=== PATIENT | female | born 1945 | race Caucasian/White ===

== ENCOUNTER 2020-04-28 19:52 | Inpatient (IN) | payer MEDICARE ==
[2020-04-28] MEDS ORDERED: Acetaminophen 500 MG TAB ONE (20:36)
[2020-04-28] MEDS ORDERED: Enoxaparin Sodium 60 MG/0.6 ML SYRINGE ONE (20:36)
--- NOTE | 2020-04-28 20:40 | PDOC.FPRHP ---
- History of Present Illness Chief Complaint: COVID PNA, dehydration - History PMHx: PSHx: FHx: Social: - Review of Systems Respiratory: reports: shortness of breath Gastrointestinal: reports: nausea, vomiting, diarrhea - Vital signs BP: [] HR: [] RR: [] Tmax: [] Pox: []% on [] Wt: [] FMR H&P: Upper Level - Plan Date/Time: 04/28/202038 I, [], have evaluated this patient and agree with findings/plan as outlined by supply chain intern resident. Pertinent changes/additions are listed here.
[2020-04-28 23:00] LABS: Troponin I Less than 0.010 ng/mL (< 0.028)
[2020-04-28] MEDS ORDERED: Ondansetron PF 4 MG/2 ML Vial IVP PRN (23:24)
[2020-04-28] MEDS ORDERED: Ondansetron ODT 4 MG TAB PO PRN (23:24)
--- NOTE | 2020-04-28 23:36 | PDOC.HHP ---
Hospitalist HPI - History of Present Illness Shortness of breath, fatigue History of Present Illness: This is a 74-year-old female patient with a history of hypertension who presents with worsening shortness of breath and fatigue after she tested positive for Covid on 04/11/2020. 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 She stayed at home however has been having worsening shortness of breath, cough and fatigue with diarrhea. She presented at [facility] where she was found to be hypoxic with elevated D-dimer, renal insufficiency leukocytosis. CTA was unable to be performed due to reduced renal function. She was transferred here for higher level care. Patient notes having diarrhea but improved. At the time of my evaluation she only complains of fatigue and and back pain from discomfort from her bed. She denies any chest pain but however has only shortness of breath She was started on Lovenox 1 mg/kg and Tylenol for pain. Hospitalist ROS - Review of Systems Constitutional: reports: weakness. denies: fever, sweats Cardiovascular: denies: chest pain, palpitations, orthopnea, paroxysmal noc. dyspnea, edema Gastrointestinal: reports: nausea, diarrhea. denies: vomiting, abdominal pain, constipation Genitourinary: denies: dysuria, frequency, incontinence Neurological: denies: weakness, numbness, incoordination Hospitalist History - Past Medical History Cardiac: reports: HTN - Past Surgical History Past Surgical History: reports: Appendectomy - Family History Family History: reports: cardiac disorder - Social History Smoking Status: Never smoker Alcohol: reports: Rare Living Situation: Friends Activity level: independent ambulation - Exam General Appearance: awake alert Neck: supple, no JVD, no thyromegaly, no lymphadenopathy Heart: RRR, no murmur, no gallops Respiratory - other findings: Reduced air entry bilaterally. Occasional wheezing. Gastrointestinal: soft, non-tender, non-distended, normal bowel sounds Extremities: no cyanosis, no clubbing, no edema Neurological: cranial nerve grossly intact, no focal deficits Psychiatric: normal affect, normal behavior, A&O x 3 Hospitalist Results - Labs Result Diagrams: 04/29/20 04:09 04/29/20 04:09 Lab results: Troponin I Less than 0.010 ng/mL (< 0.028) 04/28/20 22:25 Hospitalist H&P A/P - Plan Plan: This is a 74-year-old female patient,who presents with worsening shortness of breath fatigue and diarrhea after being tested positive for Covid a little over 2 weeks ago. Acute hypoxic respiratory failure Likely due to Covid pneumonia Oxygen therapy Respiratory consult if deteriorates. Pneumonia due to Covid Start vitamins C,D and zinc Decadron 10 mg daily Start convalescent plasma She is she is out of the window for remdesivir ID consult in a.m. Diarrhea This is resolving This may be due to Covid If persistentC. difficile check in a.m. Chronic back pain As needed Tylenol -Hypertension Resume home medications once verified CODE STATUSfull code
[2020-04-28] MEDS ORDERED: Sodium Chloride 0.9% 1,000 ML IV SCH (23:45)
[2020-04-28 23:49] VITALS: BMI 23.1
[2020-04-29] MEDS: Dexamethasone 10 MG/ML VIAL SLOW IVP SCH ×2 (01:00→08:39)
[2020-04-29 01:54] LABS: Troponin I 0.016 ng/mL (< 0.028)
[2020-04-29 04:28] LABS: #Basophils 0.2 thou/uL (0.0-0.2); #Lymphocytes 0.4 thou/uL (1.20-3.40); #Monocytes 0.1 thou/uL (0.11-0.59); #Neutrophils 13.1 thou/uL (1.40-6.50); %Basophils 1.6 % (0.0-1.0); %Eosinophils 0.1 % (0.0-10.0); %Lymphocytes 2.6 % (21.0-51.0); %Monocytes 0.9 % (0.0-10.0); %Neutrophils 94.8 % (42.0-75.0); Hemoglobin 11.4 g/dL (12.0-16.0); Mean Corpuscular HGB CONC 33.4 g/dL (32.0-36.0); Mean Corpuscular Hemoglobin 33.8 pg (27.0-31.0); Mean Platelet Volume 6.5 fL (7.4-10.4); Platelet Count 355 thou/uL (130-400); RBC Distribution Width 12.1 % (11.5-14.5); Red Blood Cell (RBC) Count 3.36 mill/uL (4.20-5.40); White Blood Cell (WBC) Count 13.8 thou/uL (4.8-10.8)
[2020-04-29 04:52] LABS: ALT (SGPT) 19 U/L (8-55); AST (SGOT) 27 U/L (5-34); Alkaline Phosphatase 66 U/L (40-110); Anion Gap 15 mmol/L (10-20); BUN (Urea Nitrogen) 48 mg/dL (9.8-20.1); Bilirubin, Total 0.2 mg/dL (0.2-1.2); Calc. Creatinine Clearance 57 mL/min (70-130); Calcium 8.1 mg/dL (7.8-10.44); Carbon Dioxide 16 mmol/L (23-31); Chloride 111 mmol/L (98-107); Globulin 3.6 g/dL (2.4-3.5); Glucose 159 mg/dL (83-110); Potassium 4.3 mmol/L (3.5-5.1); Protein, Total 6.6 g/dL (6.0-8.3); Sodium 138 mmol/L (136-145)
[2020-04-29 04:53] LABS: Troponin I 0.021 ng/mL (< 0.028)
[2020-04-29] MEDS: Acetaminophen 325 MG TAB PO PRN ×5 (04:58→20:53)
--- NOTE | 2020-04-29 05:29 | PDOC.FMACP ---
Advance Care Planning - Note Summary: Advanced Care Planning was discussed. The diagnosis, prognosis and goals of care were discussed. [place] decision maker is Abdirahman Escalante, a friend. code status is full code
[2020-04-29] MEDS: Cholecalciferol (Vitamin D3) 400 UNITS TAB PO SCH (08:39)
[2020-04-29] MEDS: Ascorbic Acid 500 mg Chewable Tablet PO SCH (08:39)
[2020-04-29] MEDS: Enoxaparin Sodium 60 MG/0.6 ML SYRINGE SC SCH ×2 (08:40→20:49)
--- NOTE | 2020-04-29 12:56 | PDOC.HOSPP ---
- Subjective Subjective: Patient was seen examined at bedside. Patient stated her breathing is better. She is currently satting in mid 90s on 3 L.She is status post convalescent plasma. No fever - Objective Vital Signs & Weight: Vital Signs (12 hours) Temp Pulse Pulse Resp BP BP Pulse Ox 04/29/20 08:00 98.0 F 71 18 138/63 95 04/29/20 04:49 97.4 F L 70 20 117/65 93 L 04/29/20 03:13 97.2 F L 71 20 113/62 94 L Weight Weight 138 lb 12.8 oz I&O: 04/28/20 04/29/20 04/30/20 06:59 06:59 06:59 Intake Total 240 Balance 240 Result Diagrams: 04/29/20 04:09 04/29/20 04:09 Radiology Reviewed by me: Yes EKG Reviewed by me: Yes Hospitalist ROS - Medication Medications: Active Medications Generic Name Dose Route Start Last Admin Trade Name Freq PRN Reason Stop Dose Admin Acetaminophen 650 mg 04/28/20 23:24 04/29/20 08:51 Acetaminophen 325 Mg Tab PO 650 mg Q4H PRN Administration Headache/Fever/Mild Pain (1-3) Ascorbic Acid 1,000 mg 04/29/20 09:00 04/29/20 08:39 Ascorbic Acid 500 Mg Chewable Tablet PO 1,000 mg DAILY MINOO Administration Cholecalciferol 400 units 04/29/20 09:00 04/29/20 08:39 Cholecalciferol (Vitamin D3) 400 Units Tab PO 400 units DAILY MINOO Administration Dexamethasone 10 mg 04/28/20 23:45 04/29/20 08:39 Dexamethasone 10 Mg/Ml Vial SLOW IVP 10 mg DAILY MINOO Administration Enoxaparin Sodium 60 mg 04/29/20 09:00 04/29/20 08:40 Enoxaparin Sodium 60 Mg/0.6 Ml Syringe SC 60 mg 0900,2100 MINOO Administration - Exam General Appearance: NAD Eye: PERRL ENT: normocephalic atraumatic Neck: supple Heart: RRR Respiratory: CTAB Gastrointestinal: soft, non-tender Extremities: no cyanosis Skin: normal turgor Neurological: cranial nerve grossly intact Psychiatric: normal affect, normal behavior, A&O x 3 Hosp A/P - Plan The patient is a very pleasant 74 years old female who has significant past medical history of hypertension, dyslipidemia, who presented to ED with worsening dyspnea, and diarrhea. She was tested positive for Covid 2 weeks ago. Acute hypoxic respiratory failure likely secondary to COVID-19 pneumonia --We will continue with Decadron, supportive cares. Ancillary treatments with vitamin C/D/zinc --Status post convalescent plasma. Patient is not a candidate for remdesivir given duration of symptoms. COVID-19 pneumonia --Management as above Diarrhea --Likely due to above, resolved. Supportive care Essential hypertension --Blood pressure stable, resume home medication Dyslipidemia --Resume statin therapy DVT ppx: Lovenox twice daily GI ppx: Protonix Code Status: Full code Anticipated Dispo: Home when medically stable
--- NOTE | 2020-04-29 15:24 | CON ---
DATE OF CONSULTATION: 04/29/2020 REASON FOR CONSULTATION: COVID pneumonia. HISTORY OF PRESENT ILLNESS: A 74-year-old patient with history of hyperlipidemia, hypertension, who has been ill for the past 10 days, but had a positive test for the past 18 days. Three days before admission, she developed nausea, diarrhea and volume depletion. Some cough but no dyspnea. No headaches. No chest pain. No back pain. No abdominal pain. No genitourinary symptoms. No joint symptoms. MEDICAL HISTORY: Hyperlipidemia, hypertension. PAST SURGICAL HISTORY: Appendectomy, foot surgery. SOCIAL HISTORY: Never a smoker. She works as a nurse. ALLERGIES: NONE. CURRENT MEDICATIONS: 1. Lipitor. 2. Decadron. 3. Lovenox. 4. Prinzide. 5. Zofran. 6. Zinc. PHYSICAL EXAMINATION: VITAL SIGNS: She is afebrile. She is on nasal cannula 3 to 4 L, saturating anywhere from 93% to 95% depending on activity, 138/63 blood pressure. GENERAL: Appears in no distress, feeling a little better. SKIN: Unremarkable. No lymphadenopathy. HEENT: Ocular movements conjugate. Oral cavity normal. LUNGS: With inspiratory crackles at the bases mostly on the right side. No wheezing. HEART: S1 and S2. Regular rate. No S3 or S4. ABDOMEN: Soft, not distended or tender. No ascites. No bladder distention. EXTREMITIES: No joint inflammatory activity, moves extremities equally. NEUROLOGIC: Cognitive function appears to be intact. LABORATORY DATA: White cell count 13.8, hemoglobin 11.4, platelets 355, 94% neutrophils. Creatinine 0.88. Liver profile normal. Albumin 3.0. COVID-19 PCR detected on April 19. Chest x-ray, diffuse infiltrates. ASSESSMENT: Hypertension, hyperlipidemia with moderate COVID pneumonia, admitted mostly because of gastrointestinal symptoms and volume depletion. The patient has moderate disease and is at anywhere from 12 to 15 day of illness duration thus far, maybe even longer. Continue Decadron. I do not think she would benefit from remdesivir. I believe she was given plasma on admission, but plasma has been demonstrated not to be effective in a randomized control trial. She has a low risk for progression of her respiratory symptoms since she is at the end of the second week of illness and should be able to be discharged soon once her gastrointestinal issues improve. Job ID: [id number]
[2020-04-29] MEDS: Atorvastatin Calcium 20 MG TAB PO SCH (20:49)
[2020-04-30] MEDS: Acetaminophen 325 MG TAB PO PRN ×3 (04:55→18:50)
[2020-04-30 05:14] LABS: Anion Gap 14 mmol/L (10-20); BUN (Urea Nitrogen) 37 mg/dL (9.8-20.1); CRP (Inflammatory) 12.66 mg/dL (= or < 0.5); Calc. Creatinine Clearance 61 mL/min (70-130); Calcium 8.1 mg/dL (7.8-10.44); Carbon Dioxide 19 mmol/L (23-31); Chloride 114 mmol/L (98-107); Glucose 146 mg/dL (83-110); Potassium 4.3 mmol/L (3.5-5.1); Sodium 143 mmol/L (136-145)
[2020-04-30 05:58] LABS: Band 17 % (5-11); Hemoglobin 11.4 g/dL (12.0-16.0); Lymphocytes 7 % (21-51); MDiff Complete? YES; Mean Corpuscular HGB CONC 33.4 g/dL (32.0-36.0); Mean Corpuscular Hemoglobin 33.6 pg (27.0-31.0); Mean Platelet Volume 6.7 fL (7.4-10.4); Monocytes 3 % (0-10); Neutrophil 73 % (42-75); Platelet Count 405 thou/uL (130-400); RBC Distribution Width 12.2 % (11.5-14.5); Red Blood Cell (RBC) Count 3.39 mill/uL (4.20-5.40); White Blood Cell (WBC) Count 20.7 thou/uL (4.8-10.8)
[2020-04-30] MEDS: Cholecalciferol (Vitamin D3) 400 UNITS TAB PO SCH (09:23)
[2020-04-30] MEDS: Lisinopril/Hydrochlorothiazide 20/25 mg Tablet PO SCH (09:23)
[2020-04-30] MEDS: Dexamethasone 4 mg/ml Vial SLOW IVP SCH (09:24)
[2020-04-30] MEDS: Ascorbic Acid 500 mg Chewable Tablet PO SCH (09:24)
[2020-04-30] MEDS: Zinc Sulfate 220 MG CAP PO SCH (09:24)
[2020-04-30] MEDS: Enoxaparin Sodium 60 MG/0.6 ML SYRINGE SC SCH ×2 (09:25→20:33)
--- NOTE | 2020-04-30 14:34 | PDOC.HOSPP ---
- Subjective Encounter Date: 04/30/20 Encounter Time: 08:00 Subjective: Patient seen for follow-up regarding acute hypoxic respiratory failure. She reports feeling better. - Objective Vital Signs & Weight: Vital Signs (12 hours) Temp Pulse Resp BP Pulse Ox 04/30/20 11:27 98.7 F 74 24 H 141/71 H 92 L 04/30/20 09:30 98.3 F 84 24 H 146/63 H 92 L 04/30/20 07:48 94 L 04/30/20 04:57 97.7 F 74 17 150/81 H 94 L Weight Weight 138 lb 12.8 oz I&O: 04/29/20 04/30/20 05/01/20 06:59 06:59 06:59 Intake Total 240 Output Total 100 Balance 240 -100 Result Diagrams: 04/30/20 04:36 04/30/20 04:36 Additional Labs: Labs and MAR reviewed by de Hospitalist ROS - Review of Systems Respiratory: reports: cough, SOB with excertion Cardiovascular: denies: chest pain, palpitations, orthopnea, paroxysmal noc. dyspnea, edema, light headedness Gastrointestinal: denies: nausea, vomiting, abdominal pain, diarrhea, constipation, melena, hematochezia - Medication Medications: Active Medications Generic Name Dose Route Start Last Admin Trade Name Freq PRN Reason Stop Dose Admin Acetaminophen 650 mg 04/28/20 23:24 04/30/20 12:00 Acetaminophen 325 Mg Tab PO 650 mg Q4H PRN Administration Headache/Fever/Mild Pain (1-3) Ascorbic Acid 1,000 mg 04/29/20 09:00 04/30/20 09:24 Ascorbic Acid 500 Mg Chewable Tablet PO 1,000 mg DAILY MINOO Administration Atorvastatin Calcium 20 mg 04/29/20 21:00 04/29/20 20:49 Atorvastatin Calcium 20 Mg Tab PO 20 mg HS MINOO Administration Cholecalciferol 400 units 04/29/20 09:00 04/30/20 09:23 Cholecalciferol (Vitamin D3) 400 Units Tab PO 400 units DAILY MINOO Administration Dexamethasone 10 mg 04/30/20 09:00 04/30/20 09:24 Dexamethasone 4 Mg/Ml Vial SLOW IVP 10 mg DAILY MINOO Administration Enoxaparin Sodium 60 mg 04/29/20 09:00 04/30/20 09:25 Enoxaparin Sodium 60 Mg/0.6 Ml Syringe SC 60 mg 0900,2100 MINOO Administration Lisinopril/HCTZ 1 tab 04/30/20 09:00 04/30/20 09:23 Lisinopril/Hydrochlorothiazide 20/25 Mg Tablet PO 1 tab DAILY MINOO Administration Metoprolol Succinate 50 mg 04/30/20 09:00 04/30/20 09:24 Metoprolol Succinate Xl 50 Mg Tab PO 50 mg DAILY MINOO Administration Ondansetron HCl 4 mg 04/28/20 23:24 04/29/20 16:46 Ondansetron Pf 4 Mg/2 Ml Vial IVP 4 mg Q6H PRN Administration Nausea/Vomiting Pantoprazole Sodium 40 mg 04/30/20 09:00 04/30/20 09:23 Pantoprazole 40 Mg Tab PO 40 mg DAILY MINOO Administration Zinc Sulfate 220 mg 04/30/20 09:00 04/30/20 09:24 Zinc Sulfate 220 Mg Cap PO 220 mg DAILY MINOO Administration - Exam General Appearance: awake alert Eye: anicteric sclera ENT: moist mucosa Neck: supple Heart: RRR Respiratory: CTAB Gastrointestinal: soft, non-tender Skin: no rashes Psychiatric: normal affect, normal behavior Hosp A/P - Plan Assessment/plan: Acute hypoxic respiratory failure likely secondary to COVID-19 pneumonia --continue dexamethasone and vitamin C/D/zinc --Status post convalescent plasma. Patient is not a candidate for remdesivir given duration of symptoms. --Patient continues to be hypoxic, will need home oxygen at the time of discharge. COVID-19 pneumonia --Clinically improving, but continues to require supplemental oxygen Diarrhea --Resolved Essential hypertension --Controlled and stable Dyslipidemia --Continue Lipitor
[2020-04-30] MEDS: Atorvastatin Calcium 20 MG TAB PO SCH (20:33)
[2020-05-01] MEDS: Acetaminophen 325 MG TAB PO PRN ×4 (02:38→19:56)
[2020-05-01 06:05] LABS: Hemoglobin 11.4 g/dL (12.0-16.0); MDiff Complete? YES; Mean Corpuscular HGB CONC 33.8 g/dL (32.0-36.0); Mean Corpuscular Hemoglobin 33.4 pg (27.0-31.0); Mean Corpuscular Volume 98.7 fL (78.0-98.0); Mean Platelet Volume 6.6 fL (7.4-10.4); Platelet Count 456 thou/uL (130-400); RBC Distribution Width 12.1 % (11.5-14.5); Red Blood Cell (RBC) Count 3.42 mill/uL (4.20-5.40); White Blood Cell (WBC) Count 19.5 thou/uL (4.8-10.8)
[2020-05-01 06:06] LABS: Band 15 % (5-11); Lymphocytes 9 % (21-51); Monocytes 2 % (0-10); Neutrophil 73 % (42-75); Reactive Lymphocytes 1 % (0-10)
[2020-05-01] MEDS: Vancomycin HCl 25 MG/ML Oral PO SCH ×3 (09:34→19:57)
[2020-05-01] MEDS: Saccharomyces boulardii 250 MG CAP PO SCH (09:34)
[2020-05-01] MEDS: Lisinopril/Hydrochlorothiazide 20/25 mg Tablet PO SCH (09:34)
[2020-05-01] MEDS: Ascorbic Acid 500 mg Chewable Tablet PO SCH (09:34)
[2020-05-01] MEDS: Cholecalciferol (Vitamin D3) 400 UNITS TAB PO SCH (09:35)
[2020-05-01] MEDS: Zinc Sulfate 220 MG CAP PO SCH (09:35)
[2020-05-01] MEDS: Enoxaparin Sodium 60 MG/0.6 ML SYRINGE SC SCH ×2 (09:35→19:56)
[2020-05-01] MEDS: Dexamethasone 4 mg/ml Vial SLOW IVP SCH (09:35)
--- NOTE | 2020-05-01 17:39 | PDOC.HOSPP ---
- Subjective Encounter Date: 05/01/20 Encounter Time: 07:30 Subjective: Patient seen for follow-up regarding cluster #infection. She denies diarrhea at this time. She denies chest pain or shortness of breath. - Objective Vital Signs & Weight: Vital Signs (12 hours) Temp Pulse Resp BP Pulse Ox 05/01/20 15:14 98.6 F 72 24 H 153/65 H 94 L 05/01/20 13:10 98.4 F 97 17 144/68 H 93 L 05/01/20 09:35 98 F 82 24 H 151/74 H 93 L Weight Weight 138 lb 12.8 oz I&O: 04/30/20 05/01/20 05/02/20 06:59 06:59 06:59 Output Total 100 Balance -100 Result Diagrams: 05/01/20 04:34 04/30/20 04:36 Additional Labs: I reviewed patient's labs and MAR EKG Reviewed by me: Yes (Normal sinus rhythm on telemetry) Hospitalist ROS - Review of Systems Respiratory: reports: SOB with excertion Cardiovascular: denies: chest pain, palpitations, orthopnea, paroxysmal noc. dyspnea, edema, light headedness Gastrointestinal: denies: nausea, vomiting, abdominal pain, diarrhea, constipation, melena, hematochezia - Medication Medications: Active Medications Generic Name Dose Route Start Last Admin Trade Name Francheska PRN Reason Stop Dose Admin Acetaminophen 650 mg 04/28/20 23:24 05/01/20 15:54 Acetaminophen 325 Mg Tab PO 650 mg Q4H PRN Administration Headache/Fever/Mild Pain (1-3) Ascorbic Acid 1,000 mg 04/29/20 09:00 05/01/20 09:34 Ascorbic Acid 500 Mg Chewable Tablet PO 1,000 mg DAILY MINOO Administration Atorvastatin Calcium 20 mg 04/29/20 21:00 04/30/20 20:33 Atorvastatin Calcium 20 Mg Tab PO 20 mg HS MINOO Administration Cholecalciferol 400 units 04/29/20 09:00 05/01/20 09:35 Cholecalciferol (Vitamin D3) 400 Units Tab PO 400 units DAILY MINOO Administration Dexamethasone 10 mg 04/30/20 09:00 05/01/20 09:35 Dexamethasone 4 Mg/Ml Vial SLOW IVP 10 mg DAILY MINOO Administration Enoxaparin Sodium 60 mg 04/29/20 09:00 05/01/20 09:35 Enoxaparin Sodium 60 Mg/0.6 Ml Syringe SC 60 mg 0900,2100 MINOO Administration Lisinopril/HCTZ 1 tab 04/30/20 09:00 05/01/20 09:34 Lisinopril/Hydrochlorothiazide 20/25 Mg Tablet PO 1 tab DAILY MINOO Administration Metoprolol Succinate 50 mg 04/30/20 09:00 05/01/20 09:35 Metoprolol Succinate Xl 50 Mg Tab PO 50 mg DAILY MINOO Administration Ondansetron HCl 4 mg 04/28/20 23:24 04/29/20 16:46 Ondansetron Pf 4 Mg/2 Ml Vial IVP 4 mg Q6H PRN Administration Nausea/Vomiting Saccharomyces Boulardii 250 mg 05/01/20 09:00 05/01/20 09:34 Saccharomyces Boulardii 250 Mg Cap PO 250 mg DAILY MINOO Administration Sodium Chloride 10 ml 05/01/20 09:00 05/01/20 09:35 Flush - Normal Saline 10 Ml Syringe IVF 10 ml Q12HR MINOO Administration Vancomycin HCl 125 mg 05/01/20 08:00 05/01/20 15:08 Vancomycin Hcl 25 Mg/Ml Oral PO 125 mg Q6H MINOO Administration Zinc Sulfate 220 mg 04/30/20 09:00 05/01/20 09:35 Zinc Sulfate 220 Mg Cap PO 220 mg DAILY MINOO Administration - Exam General Appearance: awake alert Eye: anicteric sclera ENT: normocephalic atraumatic Neck: supple Heart: RRR Respiratory: CTAB Gastrointestinal: soft, non-tender Skin: no rashes Musculoskeletal: no muscle wasting Psychiatric: normal affect, normal behavior Hosp A/P - Plan Assessment/plan: C. difficile infection -Start vancomycin orally and Florastor. Acute hypoxic respiratory failure likely secondary to COVID-19 pneumonia --Patient is on dexamethasone and vitamin C/D/zinc --Status post convalescent plasma. --Patient is not a candidate for remdesivir given duration of symptoms. --Patient continues to be hypoxic. COVID-19 pneumonia --Clinically improving, but continues to require supplemental oxygen Diarrhea --Resolved Essential hypertension --Controlled and stable Dyslipidemia --Patient is on Lipitor
[2020-05-01] MEDS: Diclofenac Sodium 50 MG DR TAB PO PRN (18:43)
[2020-05-01] MEDS: Atorvastatin Calcium 20 MG TAB PO SCH (19:56)
[2020-05-02 05:32] LABS: #Monocytes 1.1 thou/uL (0.11-0.59); #Neutrophils 14.3 thou/uL (1.40-6.50); %Basophils 0.1 % (0.0-1.0); %Eosinophils 0.1 % (0.0-10.0); %Lymphocytes 6.2 % (21.0-51.0); %Monocytes 6.6 % (0.0-10.0); Hemoglobin 11.8 g/dL (12.0-16.0); Mean Corpuscular HGB CONC 33.2 g/dL (32.0-36.0); Mean Corpuscular Volume 99.3 fL (78.0-98.0); Mean Platelet Volume 6.8 fL (7.4-10.4); Platelet Count 485 thou/uL (130-400); RBC Distribution Width 11.9 % (11.5-14.5); Red Blood Cell (RBC) Count 3.59 mill/uL (4.20-5.40); White Blood Cell (WBC) Count 16.5 thou/uL (4.8-10.8)
[2020-05-02] MEDS: Vancomycin HCl 25 MG/ML Oral PO SCH ×3 (06:59→18:41)
[2020-05-02] MEDS: Ascorbic Acid 500 mg Chewable Tablet PO SCH (10:28)
[2020-05-02] MEDS: Lisinopril/Hydrochlorothiazide 20/25 mg Tablet PO SCH (10:28)
[2020-05-02] MEDS: Diclofenac Sodium 50 MG DR TAB PO PRN ×2 (10:28→20:50)
[2020-05-02] MEDS: Zinc Sulfate 220 MG CAP PO SCH (10:28)
[2020-05-02] MEDS: Cholecalciferol (Vitamin D3) 400 UNITS TAB PO SCH (10:29)
[2020-05-02] MEDS: Enoxaparin Sodium 60 MG/0.6 ML SYRINGE SC SCH ×2 (10:29→20:51)
[2020-05-02] MEDS: Dexamethasone 4 mg/ml Vial SLOW IVP SCH (10:29)
[2020-05-02] MEDS: Saccharomyces boulardii 250 MG CAP PO SCH (10:31)
[2020-05-02] MEDS: Acetaminophen 325 MG TAB PO PRN ×2 (13:07→20:52)
--- NOTE | 2020-05-02 15:43 | PDOC.HOSPP ---
- Subjective Encounter Date: 05/02/20 Encounter Time: 07:30 Subjective: Patient seen for follow-up regarding hypoxic respiratory failure. She denies chest pain. - Objective Vital Signs & Weight: Vital Signs (12 hours) Temp Pulse Resp BP Pulse Ox 05/02/20 13:05 98.3 F 75 24 H 153/69 H 92 L 05/02/20 10:30 98.0 F 05/02/20 04:00 98.7 F 65 24 H 143/70 H 93 L Weight Weight 138 lb 12.8 oz I&O: 05/01/20 05/02/20 05/03/20 06:59 06:59 06:59 Intake Total 720 Balance 720 Result Diagrams: 05/02/20 05:09 05/02/20 05:09 Additional Labs: Labs and MAR reviewed by me EKG Reviewed by me: Yes (Telemetry shows normal sinus rhythm) Hospitalist ROS - Review of Systems Cardiovascular: denies: chest pain, palpitations, orthopnea, paroxysmal noc. dyspnea, edema, light headedness Gastrointestinal: denies: nausea, vomiting, abdominal pain, diarrhea, constipat ion, melena, hematochezia - Medication Medications: Active Medications Generic Name Dose Route Start Last Admin Trade Name Freq PRN Reason Stop Dose Admin Acetaminophen 650 mg 04/28/20 23:24 05/02/20 13:07 Acetaminophen 325 Mg Tab PO 650 mg Q4H PRN Administration Headache/Fever/Mild Pain (1-3) Ascorbic Acid 1,000 mg 04/29/20 09:00 05/02/20 10:28 Ascorbic Acid 500 Mg Chewable Tablet PO 1,000 mg DAILY MINOO Administration Atorvastatin Calcium 20 mg 04/29/20 21:00 05/01/20 19:56 Atorvastatin Calcium 20 Mg Tab PO 20 mg HS MINOO Administration Cholecalciferol 400 units 04/29/20 09:00 05/02/20 10:29 Cholecalciferol (Vitamin D3) 400 Units Tab PO 400 units DAILY MINOO Administration Dexamethasone 10 mg 04/30/20 09:00 05/02/20 10:29 Dexamethasone 4 Mg/Ml Vial SLOW IVP 10 mg DAILY MINOO Administration Diclofenac Sodium 50 mg 05/01/20 18:07 05/02/20 10:28 D[address]lofenac Sodium [address] Tab PO 50 mg BIDPRN PRN Administration Pain Enoxaparin Sodium 60 mg 04/29/20 09:00 05/02/20 10:29 Enoxaparin Sodium 60 Mg/0.6 Ml Syringe SC 60 mg 0900,2100 MINOO Administration Lisinopril/HCTZ 1 tab 04/30/20 09:00 05/02/20 10:28 Lisinopril/Hydrochlorothiazide 20/25 Mg Tablet PO 1 tab DAILY MINOO Administration Metoprolol Succinate 50 mg 04/30/20 09:00 05/02/20 10:28 Metoprolol Succinate Xl 50 Mg Tab PO 50 mg DAILY MINOO Administration Ondansetron HCl 4 mg 04/28/20 23:24 04/29/20 16:46 Ondansetron Pf 4 Mg/2 Ml Vial IVP 4 mg Q6H PRN Administration Nausea/Vomiting Saccharomyces Boulardii 250 mg 05/01/20 09:00 05/02/20 10:31 Saccharomyces Boulardii 250 Mg Cap PO 250 mg DAILY MINOO Administration Sodium Chloride 10 ml 05/01/20 09:00 05/02/20 10:31 Flush - Normal Saline 10 Ml Syringe IVF 10 ml Q12HR MINOO Administration Vancomycin HCl 125 mg 05/02/20 13:00 05/02/20 13:00 Vancomycin Hcl 25 Mg/Ml Oral PO 125 mg 0100,0700,1300,1900 MINOO Administration Zinc Sulfate 220 mg 04/30/20 09:00 05/02/20 10:28 Zinc Sulfate 220 Mg Cap PO 220 mg DAILY MINOO Administration - Exam General Appearance: awake alert Eye: anicteric sclera Neck: supple Heart: RRR Respiratory: rhonchi Gastrointestinal: soft Skin: no rashes Psychiatric: normal affect Hosp A/P - Plan Assessment/plan: Acute hypoxic respiratory failure likely secondary to COVID-19 pneumonia --Continue dexamethasone and vitamin C/D/zinc --Status post convalescent plasma. --Patient was not a candidate for remdesivir given duration of symptoms. --Patient continues to be hypoxic, requiring supplemental oxygen. C. difficile infection -vancomycin orally and Florastor. COVID-19 pneumonia --Clinically improving, but continues to require supplemental oxygen Diarrhea --Resolved Essential hypertension --Stable Dyslipidemia --Continue Lipitor
[2020-05-02] MEDS: Atorvastatin Calcium 20 MG TAB PO SCH (20:52)
[2020-05-03] MEDS: Vancomycin HCl 25 MG/ML Oral PO SCH ×4 (02:40→18:49)
[2020-05-03] MEDS: Acetaminophen 325 MG TAB PO PRN ×3 (04:50→21:34)
[2020-05-03] MEDS: Enoxaparin Sodium 60 MG/0.6 ML SYRINGE SC SCH ×2 (08:10→21:35)
[2020-05-03] MEDS: Ascorbic Acid 500 mg Chewable Tablet PO SCH (08:11)
[2020-05-03] MEDS: Saccharomyces boulardii 250 MG CAP PO SCH (08:11)
[2020-05-03] MEDS: Diclofenac Sodium 50 MG DR TAB PO PRN ×2 (08:11→21:36)
[2020-05-03] MEDS: Zinc Sulfate 220 MG CAP PO SCH (08:11)
[2020-05-03] MEDS: Cholecalciferol (Vitamin D3) 400 UNITS TAB PO SCH (08:12)
[2020-05-03] MEDS: Dexamethasone 4 mg/ml Vial SLOW IVP SCH (08:12)
[2020-05-03] MEDS: Lisinopril/Hydrochlorothiazide 20/25 mg Tablet PO SCH (08:12)
--- NOTE | 2020-05-03 19:26 | PDOC.HOSPP ---
- Subjective Encounter Date: 05/03/20 Encounter Time: 19:24 Subjective: Patient seen for follow-up regarding COVID-19 infection. She is on 6 L/min of oxygen. - Objective Vital Signs & Weight: Vital Signs (12 hours) Temp Pulse Resp BP BP BP Pulse Ox 05/03/20 16:00 98.3 F 59 L 20 153/74 H 94 L 05/03/20 15:12 136/76 140/84 05/03/20 12:00 98.1 F 60 16 139/65 94 L 05/03/20 08:00 97.3 F L 60 24 H 166/73 H 95 Pulse Ox Pulse Ox 05/03/20 16:00 05/03/20 15:12 97 95 05/03/20 12:00 05/03/20 08:00 Weight Weight 138 lb 12.8 oz I&O: 05/02/20 05/03/20 05/04/20 06:59 06:59 06:59 Intake Total 720 Balance 720 Result Diagrams: 05/02/20 05:09 05/02/20 05:09 Additional Labs: I reviewed patient's labs and [facility] Hospitalist ROS - Review of Systems Cardiovascular: denies: chest pain, palpitations, orthopnea, paroxysmal noc. dyspnea, edema, light headedness Gastrointestinal: denies: nausea, vomiting, abdominal pain, diarrhea, constipation, melena, hematochezia Genitourinary: denies: dysuria, frequency, incontinence, hematuria, retention - Medication Medications: Active Medications Generic Name Dose Route Start Last Admin Trade Name Freq PRN Reason Stop Dose Admin Acetaminophen 650 mg 04/28/20 23:24 05/03/20 17:01 Acetaminophen 325 Mg Tab PO 650 mg Q4H PRN Administration Headache/Fever/Mild Pain (1-3) Ascorbic Acid 1,000 mg 04/29/20 09:00 05/03/20 08:11 Ascorbic Acid 500 Mg Chewable Tablet PO 1,000 mg DAILY MINOO Administration Atorvastatin Calcium 20 mg 04/29/20 21:00 05/02/20 20:52 Atorvastatin Calcium 20 Mg Tab PO 20 mg HS MINOO Administration Cholecalciferol 400 units 04/29/20 09:00 05/03/20 08:12 Cholecalciferol (Vitamin D3) 400 Units Tab PO 400 units DAILY MINOO Administration Dexamethasone 10 mg 04/30/20 09:00 05/03/20 08:12 Dexamethasone 4 Mg/Ml Vial SLOW IVP 10 mg DAILY MINOO Administration Diclofenac Sodium 50 mg 05/01/20 18:07 05/03/20 08:11 D[address]lofenac Sodium [address] Tab PO 50 mg BIDPRN PRN Administration Pain Enoxaparin Sodium 60 mg 04/29/20 09:00 05/03/20 08:10 Enoxaparin Sodium 60 Mg/0.6 Ml Syringe SC 60 mg 0900,2100 MINOO Administration Lisinopril/HCTZ 1 tab 04/30/20 09:00 05/03/20 08:12 Lisinopril/Hydrochlorothiazide 20/25 Mg Tablet PO 1 tab DAILY MINOO Administration Metoprolol Succinate 50 mg 04/30/20 09:00 05/03/20 08:11 Metoprolol Succinate Xl 50 Mg Tab PO 50 mg DAILY MINOO Administration Ondansetron HCl 4 mg 04/28/20 23:24 04/29/20 16:46 Ondansetron Pf 4 Mg/2 Ml Vial IVP 4 mg Q6H PRN Administration Nausea/Vomiting Saccharomyces Boulardii 250 mg 05/01/20 09:00 05/03/20 08:11 Saccharomyces Boulardii 250 Mg Cap PO 250 mg DAILY MINOO Administration Sodium Chloride 10 ml 05/01/20 09:00 05/03/20 08:08 Flush - Normal Saline 10 Ml Syringe IVF 10 ml Q12HR MINOO Administration Vancomycin HCl 125 mg 05/02/20 13:00 05/03/20 18:49 Vancomycin Hcl 25 Mg/Ml Oral PO 125 mg 0100,0700,1300,1900 MINOO Administration Zinc Sulfate 220 mg 04/30/20 09:00 05/03/20 08:11 Zinc Sulfate 220 Mg Cap PO 220 mg DAILY MINOO Administration - Exam General Appearance: awake alert Eye: anicteric sclera ENT: normocephalic atraumatic Neck: supple Heart: RRR Respiratory: rhonchi Gastrointestinal: soft Skin: no rashes Psychiatric: normal affect, normal behavior Hosp A/P - Plan Assessment/plan: Acute hypoxic respiratory failure likely secondary to COVID-19 pneumonia --Continue dexamethasone, vitamin C, vitamin D and zinc. --Status post convalescent plasma. --Patient was not a candidate for remdesivir given duration of symptoms. --Patient continues to be hypoxic, requiring supplemental oxygen. Now on 6 L/min of oxygen. C. difficile infection -Continue vancomycin orally and Florastor. COVID-19 pneumonia --Clinically improving, but continues to require supplemental oxygen Diarrhea --Resolved Essential hypertension --Stable Dyslipidemia --Patient is on Lipitor
[2020-05-03] MEDS: Atorvastatin Calcium 20 MG TAB PO SCH (21:34)
[2020-05-04] MEDS: Vancomycin HCl 25 MG/ML Oral PO SCH ×4 (00:21→18:08)
[2020-05-04] MEDS: Acetaminophen 325 MG TAB PO PRN ×4 (03:59→19:38)
[2020-05-04 05:20] LABS: Hemoglobin 13.8 g/dL (12.0-16.0); Platelet Count 683 thou/uL (130-400)
[2020-05-04] MEDS: Enoxaparin Sodium 60 MG/0.6 ML SYRINGE SC SCH ×2 (08:04→19:33)
[2020-05-04] MEDS: Dexamethasone 4 mg/ml Vial SLOW IVP SCH (08:04)
[2020-05-04] MEDS: Cholecalciferol (Vitamin D3) 400 UNITS TAB PO SCH (08:04)
[2020-05-04] MEDS: Saccharomyces boulardii 250 MG CAP PO SCH (08:05)
[2020-05-04] MEDS: Ascorbic Acid 500 mg Chewable Tablet PO SCH (08:05)
[2020-05-04] MEDS: Zinc Sulfate 220 MG CAP PO SCH (08:05)
[2020-05-04] MEDS: Lisinopril/Hydrochlorothiazide 20/25 mg Tablet PO SCH (08:05)
--- NOTE | 2020-05-04 15:33 | PDOC.HOSPP ---
- Subjective Encounter Date: 05/04/20 Encounter Time: 08:00 Subjective: Patient seen for follow-up regarding COVID-19 infection. She reports feeling better. - Objective Vital Signs & Weight: Vital Signs (12 hours) Temp Pulse Resp BP Pulse Ox 05/04/20 12:38 97.6 F 75 16 112/53 L 95 05/04/20 08:30 97.6 F 60 16 154/69 H 95 05/04/20 08:05 62 05/04/20 04:07 96.8 F L 62 18 168/73 H 94 L Weight Weight 138 lb 12.8 oz I&O: 05/03/20 05/04/20 05/05/20 06:59 06:59 06:59 Intake Total 240 Balance 240 Result Diagrams: 05/04/20 04:51 05/04/20 04:51 Additional Labs: Labs and MAR reviewed by me EKG Reviewed by me: Yes (Telemetry shows normal sinus rhythm) Hospitalist ROS - Review of Systems Respiratory: reports: SOB with excertion. denies: cough, dry, shortness of br eath, hemoptysis, pleuritic pain, sputum, wheezing Cardiovascular: denies: chest pain, palpitations, orthopnea, paroxysmal noc. dyspnea, edema, light headedness - Medication Medications: Active Medications Generic Name Dose Route Start Last Admin Trade Name Freq PRN Reason Stop Dose Admin Acetaminophen 650 mg 04/28/20 23:24 05/04/20 15:26 Acetaminophen 325 Mg Tab PO 650 mg Q4H PRN Administration Headache/Fever/Mild Pain (1-3) Ascorbic Acid 1,000 mg 04/29/20 09:00 05/04/20 08:05 Ascorbic Acid 500 Mg Chewable Tablet PO 1,000 mg DAILY MINOO Administration Atorvastatin Calcium 20 mg 04/29/20 21:00 05/03/20 21:34 Atorvastatin Calcium 20 Mg Tab PO 20 mg HS MINOO Administration Cholecalciferol 400 units 04/29/20 09:00 05/04/20 08:04 Cholecalciferol (Vitamin D3) 400 Units Tab PO 400 units DAILY MINOO Administration Dexamethasone 10 mg 04/30/20 09:00 05/04/20 08:04 Dexamethasone 4 Mg/Ml Vial SLOW IVP 10 mg DAILY MINOO Administration Diclofenac Sodium 50 mg 05/01/20 18:07 05/03/20 21:36 Diclofenac Sodium [address] Tab PO 50 mg BIDPRN PRN Administration Pain Enoxaparin Sodium 60 mg 04/29/20 09:00 05/04/20 08:04 Enoxaparin Sodium 60 Mg/0.6 Ml Syringe SC 60 mg 0900,2100 MINOO Administration Lisinopril/HCTZ 1 tab 04/30/20 09:00 05/04/20 08:05 Lisinopril/Hydrochlorothiazide 20/25 Mg Tablet PO 1 tab DAILY MINOO Administration Metoprolol Succinate 50 mg 04/30/20 09:00 05/04/20 08:05 Metoprolol Succinate Xl 50 Mg Tab PO 50 mg DAILY MINOO Administration Ondansetron HCl 4 mg 04/28/20 23:24 04/29/20 16:46 Ondansetron Pf 4 Mg/2 Ml Vial IVP 4 mg Q6H PRN Administration Nausea/Vomiting Saccharomyces Boulardii 250 mg 05/01/20 09:00 05/04/20 08:05 Saccharomyces Boulardii 250 Mg Cap PO 250 mg DAILY MINOO Administration Sodium Chloride 10 ml 05/01/20 09:00 05/04/20 08:07 Flush - Normal Saline 10 Ml Syringe IVF 10 ml Q12HR MINOO Administration Vancomycin HCl 125 mg 05/02/20 13:00 05/04/20 12:31 Vancomycin Hcl 25 Mg/Ml Oral PO 125 mg 0100,0700,1300,1900 MINOO Administration Zinc Sulfate 220 mg 04/30/20 09:00 05/04/20 08:05 Zinc Sulfate 220 Mg Cap PO 220 mg DAILY MINOO Administration - Exam General Appearance: awake alert Eye: anicteric sclera ENT: normocephalic atraumatic Neck: supple Heart: RRR Respiratory: CTAB Gastrointestinal: soft, non-tender Skin: no rashes Psychiatric: normal affect, normal behavior Hosp A/P - Plan Assessment/plan: Acute hypoxic respiratory failure likely secondary to COVID-19 pneumonia --Continue dexamethasone, vitamin C, vitamin D and zinc. --Patient has received convalescent plasma. --Patient was not a candidate for remdesivir given duration of symptoms. --Patient is improving, now requiring 4 L/min of oxygen. C. difficile infection -Continue enteral vancomycin and Florastor. COVID-19 pneumonia --Clinically improving Diarrhea --Resolved Essential hypertension --Stable Dyslipidemia --Continue Lipitor
[2020-05-04] MEDS: Atorvastatin Calcium 20 MG TAB PO SCH (19:33)
[2020-05-05] MEDS: Vancomycin HCl 25 MG/ML Oral PO SCH ×4 (00:13→18:32)
[2020-05-05] MEDS: Acetaminophen 325 MG TAB PO PRN ×4 (03:05→21:14)
[2020-05-05] MEDS: Lisinopril/Hydrochlorothiazide 20/25 mg Tablet PO SCH (08:50)
[2020-05-05] MEDS: Saccharomyces boulardii 250 MG CAP PO SCH (08:50)
[2020-05-05] MEDS: Ascorbic Acid 500 mg Chewable Tablet PO SCH (08:50)
[2020-05-05] MEDS: Cholecalciferol (Vitamin D3) 400 UNITS TAB PO SCH (08:50)
[2020-05-05] MEDS: Zinc Sulfate 220 MG CAP PO SCH (08:51)
[2020-05-05] MEDS: Enoxaparin Sodium 60 MG/0.6 ML SYRINGE SC SCH ×2 (08:51→21:13)
[2020-05-05] MEDS: Dexamethasone 4 mg/ml Vial SLOW IVP SCH (08:51)
--- NOTE | 2020-05-05 18:23 | PDOC.HOSPP ---
- Subjective Encounter Date: 05/05/20 Encounter Time: 11:00 Subjective: Patient seen in follow-up regarding acute hypoxic respiratory failure. Patient is currently on 2 L/min of oxygen, feeling well. - Objective Vital Signs & Weight: Vital Signs (12 hours) Temp Pulse Resp BP Pulse Ox Pulse Ox Pulse Ox 05/05/20 15:25 98.1 F 76 18 119/57 L 92 L 05/05/20 13:40 94 L 96 05/05/20 11:20 97.7 F 83 19 128/79 92 L 05/05/20 09:10 96 05/05/20 09:00 96.8 F L 83 20 115/55 L 96 Weight Weight 130 lb I&O: 05/04/20 05/05/20 05/06/20 06:59 06:59 06:59 Intake Total 660 Balance 660 Result Diagrams: 05/04/20 04:51 05/04/20 04:51 Additional Labs: Labs and MAR reviewed by me EKG Reviewed by me: Yes (Telemetry shows normal sinus rhythm) Hospitalist ROS - Review of Systems Cardiovascular: denies: chest pain, palpitations, orthopnea, paroxysmal noc. dyspnea, edema, light headedness Gastrointestinal: denies: nausea, vomiting, abdominal pain, diarrhea, constipation, melena, hematochezia - Medication Medications: Active Medications Generic Name Dose Route Start Last Admin Trade Name Freq PRN Reason Stop Dose Admin Acetaminophen 650 mg 04/28/20 23:24 05/05/20 15:26 Acetaminophen 325 Mg Tab PO 650 mg Q4H PRN Administration Headache/Fever/Mild Pain (1-3) Ascorbic Acid 1,000 mg 04/29/20 09:00 05/05/20 08:50 Ascorbic Acid 500 Mg Chewable Tablet PO 1,000 mg DAILY MINOO Administration Atorvastatin Calcium 20 mg 04/29/20 21:00 05/04/20 19:33 Atorvastatin Calcium 20 Mg Tab PO 20 mg HS MINOO Administration Cholecalciferol 400 units 04/29/20 09:00 05/05/20 08:50 Cholecalciferol (Vitamin D3) 400 Units Tab PO 400 units DAILY MINOO Administration Dexamethasone 10 mg 04/30/20 09:00 05/05/20 08:51 Dexamethasone 4 Mg/Ml Vial SLOW IVP 10 mg DAILY MINOO Administration Diclofenac Sodium 50 mg 05/01/20 18:07 05/03/20 21:36 Diclofenac Sodium [address] Tab PO 50 mg BIDPRN PRN Administration Pain Enoxaparin Sodium 60 mg 04/29/20 09:00 05/05/20 08:51 Enoxaparin Sodium 60 Mg/0.6 Ml Syringe SC 60 mg 0900,2100 MINOO Administration Lisinopril/HCTZ 1 tab 04/30/20 09:00 05/05/20 08:50 Lisinopril/Hydrochlorothiazide 20/25 Mg Tablet PO 1 tab DAILY MINOO Administration Metoprolol Succinate 50 mg 04/30/20 09:00 05/05/20 08:50 Metoprolol Succinate Xl 50 Mg Tab PO 50 mg DAILY MINOO Administration Ondansetron HCl 4 mg 04/28/20 23:24 04/29/20 16:46 Ondansetron Pf 4 Mg/2 Ml Vial IVP 4 mg Q6H PRN Administration Nausea/Vomiting Saccharomyces Boulardii 250 mg 05/01/20 09:00 05/05/20 08:50 Saccharomyces Boulardii 250 Mg Cap PO 250 mg DAILY MINOO Administration Sodium Chloride 10 ml 05/01/20 09:00 05/05/20 08:52 Flush - Normal Saline 10 Ml Syringe IVF 10 ml Q12HR MINOO Administration Vancomycin HCl 125 mg 05/02/20 13:00 05/05/20 15:20 Vancomycin Hcl 25 Mg/Ml Oral PO 125 mg 0100,0700,1300,1900 MINOO Administration Zinc Sulfate 220 mg 04/30/20 09:00 05/05/20 08:51 Zinc Sulfate 220 Mg Cap PO 220 mg DAILY MINOO Administration - Exam General Appearance: awake alert ENT: normocephalic atraumatic Heart: RRR Respiratory: CTAB Extremities: no clubbing Skin: no rashes Psychiatric: normal affect, normal behavior Hosp A/P - Plan Assessment/plan: Acute hypoxic respiratory failure likely secondary to COVID-19 pneumonia --Patient is on dexamethasone, vitamin C, vitamin D and zinc. --Patient has received convalescent plasma. --Patient was not a candidate for remdesivir given duration of symptoms. --Patient is improving, now requiring 2L/min of oxygen. --Likely home 24 to 48 hours C. difficile infection -Patient is on enteral vancomycin and Florastor. COVID-19 pneumonia --Clinically improving Diarrhea --Resolved Essential hypertension --Stable Dyslipidemia --Patient is on Lipitor
[2020-05-05] MEDS: Atorvastatin Calcium 20 MG TAB PO SCH (21:13)
[2020-05-06] MEDS: Vancomycin HCl 25 MG/ML Oral PO SCH ×4 (01:03→18:32)
[2020-05-06 05:17] LABS: Hemoglobin 12.1 g/dL (12.0-16.0); Platelet Count 702 thou/uL (130-400)
[2020-05-06] MEDS: Acetaminophen 325 MG TAB PO PRN (06:30)
[2020-05-06] MEDS: Ascorbic Acid 500 mg Chewable Tablet PO SCH (09:52)
[2020-05-06] MEDS: Cholecalciferol (Vitamin D3) 400 UNITS TAB PO SCH (09:52)
[2020-05-06] MEDS: Dexamethasone 4 mg/ml Vial SLOW IVP SCH (09:53)
[2020-05-06] MEDS: Enoxaparin Sodium 60 MG/0.6 ML SYRINGE SC SCH (09:53)
[2020-05-06] MEDS: Saccharomyces boulardii 250 MG CAP PO SCH (09:54)
[2020-05-06] MEDS: Lisinopril/Hydrochlorothiazide 20/25 mg Tablet PO SCH (09:54)
[2020-05-06] MEDS: Zinc Sulfate 220 MG CAP PO SCH (09:54)
--- NOTE | 2020-05-06 16:22 | PDOC.DS.DS ---
Provider - Provider Date of Admission: 04/28/20 22:01 Date of Discharge: 05/06/20 Admitting Provider: Christopher Gross MD Consultations: Infectious Disease (Dr. Case) Primary Care Physician: OUT OF TOWN Course - Hospital Course Hospital Course: Discharge diagnosis: 1. Acute hypoxic respiratory failure 2. COVID-19 pneumonia 3. C. difficile infection Hospital course: Patient is a pleasant 74-year-old lady who was admitted to the hospital on April 28, 2020 for acute hypoxic respiratory failure secondary to COVID-19 pneumonia. She received convalescent plasma. She was not a candidate for remdesivir because of duration of symptoms. She was seen by infectious disease service. She was treated with dexamethasone, vitamin C and zinc. She improved clinically. On the day of discharge, she was still hypoxic, saturating 87% at rest and with ambulation, oxygen saturation improving to 94% with 2 L/min of oxygen on exertion. She will need home oxygen. Arrangements are being made for the same. She was also found to be positive for C. difficile antigen and toxin. She was treated with enteral vancomycin and Florastor. Her diarrhea resolved following admission. Many thanks for allowing me to participate in your patient's care. Please feel free to contact me with any questions or concerns. Discharge destination: Home Total amount of time spent coordinating this discharge: 35 minutes Resuscitation Status: 04/29/20 17:51 Resuscitation Status Routine Resuscitation Status: DNAR: NO Resuscitation Discussed with: pt - Labs Lab Results: 05/06/20 04:57 05/06/20 04:57 Abnormal Lab Results - Last 48 hrs 05/06/20 04:57: Plt Count 702 H - Physical Exam Vitals: Vital Signs (12 hours) Temp Pulse Resp BP BP Pulse Ox 05/06/20 12:00 97.9 F 75 18 124/65 92 L 05/06/20 09:53 97.7 F 79 17 108/58 L 91 L Weight Weight 130 lb Physical Exam: The patient was seen and examined on the day of discharge. Patient denies chest pain or shortness of breath. Vital signs are stable. S1 and S2 are heard. Lungs are clear to auscultation bilaterally. Plan - Discharge Medications Prescriptions: Dexamethasone 6 mg PO DAILY #3 tablet Aspirin [Ecotrin Low Strength] 81 mg PO DAILY #7 tab Saccharomyces boulardii [Florastor] 250 mg PO DAILY #9 cap Vancomycin HCl 125 mg PO QID #36 capsule Ascorbic Acid [Vitamin C] 1,000 mg PO DAILY #3 tablet Zinc Sulfate [Zinc-220] 220 mg PO DAILY #3 capsule Home Medications: Medication Instructions Recorded Confirmed Type Diclofenac Sodium DR [Voltaren] 50 mg PO BID PRN 04/28/20 04/28/20 History Lisinopril/Hydrochlorothiazide 1 tablet PO DAILY 04/28/20 04/28/20 History [Lisinopril-Hctz 20-25 mg Tab] Lovastatin 40 mg PO DAILY 04/28/20 04/28/20 History Metoprolol Succinate [Toprol XL] 50 mg PO DAILY 04/28/20 04/28/20 History Ascorbic Acid [Vitamin C] 1,000 mg PO DAILY #3 tablet 05/06/20 Rx Aspirin [Ecotrin Low Strength] 81 mg PO DAILY #7 tab 05/06/20 Rx Dexamethasone 6 mg PO DAILY #3 tablet 05/06/20 Rx Saccharomyces boulardii [Florastor] 250 mg PO DAILY #9 cap 05/06/20 Rx Vancomycin HCl 125 mg PO QID #36 capsule 05/06/20 Rx Zinc Sulfate [Zinc-220] 220 mg PO DAILY #3 capsule 05/06/20 Rx Allergies: No Known Allergies Allergy (Verified 04/28/20 23:53) - Discharge Instructions Discharge Instructions:: Check your oxygen saturation with a pulse oximetry at home and seek medical help for saturation less than 90%. Activity:: Activity as Tolerated Nourishment:: Heart Healthy Diet - Follow up Plan Referrals: [facility], [place] [Other] ([facility] will be providing your home oxygen equipment. The [place] office will deliver your portable tank for transport home and the [place] office will deliver the oxygen concentrator to your home today prior to discharge.) [facility] [Primary Care Provider] - Ophelia Ramirez [ Not on Staff] - 3 Days Disposition: HOME Quality - Care Measures CORE MEASURES:: N/A
[2020-05-06 17:49] VITALS: BP 140/62; TEMP 97.8
== END 2020-05-06 19:56 | disposition home or self-care (01) | DRG 177 ==
LOC: ERS 19:52 → 2SW 22:01
PROVIDERS: ADMIT Student in an Organized Health Care Education/Training Program; ATTEND Internal Medicine
PROC: 8E0ZXY6 Isolation (ICD-10-PCS; principal; 2020-04-28)
DX: U07.1 COVID-19 (principal); J12.89 Other viral pneumonia; J96.01 Acute respiratory failure with hypoxia; E86.0 Dehydration; E78.00 Pure hypercholesterolemia, unspecified; I10 Essential (primary) hypertension; G89.29 Other chronic pain; B96.89 Other specified bacterial agents as the cause of diseases classified elsewhere; M54.9 Dorsalgia, unspecified; R19.7 Diarrhea, unspecified; Z90.49 Acquired absence of other specified parts of digestive tract; Z79.899 Other long term (current) drug therapy; Z91.018 Allergy to other foods
CPT/HCPCS: 36415; 36430; 80048; 80053; 82565; 82728; 84484; 85014; 85018; 85025; 85049; 86140; 86850; 86900; 86901; 96372; 99285; J1100; J1650; J2405; P9017

== ENCOUNTER 2025-03-07 07:42 | Day surgery (SDC) | payer MEDICARE ==
[2025-03-06 11:20] VITALS: BMI 21.6
[~2025-03-07 07:42] MED LIST: EPINEPHrine 0.3 MG in Ophthalmic Irrigation Solution 500 ML IRR SCH
[2025-03-07] MEDS ORDERED: Cyclopentolate 1% Opth Drop 2 ML BOT ONE (08:33)
[2025-03-07 08:34] LABS: Anion Gap 13 mmol/L (10-20); BUN (Urea Nitrogen) 36 mg/dL (9.8-20.1); Calc. Creatinine Clearance 47 mL/min (70-130); Calcium 9.9 mg/dL (7.8-10.44); Carbon Dioxide 25 mmol/L (23-31); Chloride 106 mmol/L (98-107); Glucose 90 mg/dL (83-110); Potassium 3.9 mmol/L (3.5-5.1); Sodium 140 mmol/L (136-145)
[2025-03-07] MEDS ORDERED: PROPOFOL 20 ML ONE (09:24)
[2025-03-07] MEDS ORDERED: Ondansetron PF 4 MG/2 ML Vial ONE (09:25)
[2025-03-07] MEDS ORDERED: Maxitrol 0.1% Opth Oint 3.5 GM TUBE ONE (09:59)
[2025-03-07] MEDS ORDERED: CEFAZOLIN 1 GM VIAL ONE (09:59)
[2025-03-07] MEDS ORDERED: Lidocaine 1% PF 5 ML VIAL ONE (09:59)
[2025-03-07] MEDS ORDERED: Lidocaine 4% PF 5 ML AMP ONE (09:59)
== END 2025-03-07 11:05 | disposition home or self-care (01) ==
LOC: SDC 07:42
PROVIDERS: ATTEND Ophthalmology Retina Specialist
PROC: 08T43ZZ Resection of Right Vitreous, Percutaneous Approach (ICD-10-PCS; principal; 2025-03-07)
DX: H35.371 Puckering of macula, right eye (principal); I10 Essential (primary) hypertension; Z90.49 Acquired absence of other specified parts of digestive tract; Z79.899 Other long term (current) drug therapy
CPT/HCPCS: 67041; 80048; 93005; J0166; J2250; J2405; J2704; J3010; 93010; J0690; J3301; J3490